=== PATIENT | male | born 1950 | race Caucasian/White ===

== ENCOUNTER 2016-08-25 12:58 | Inpatient (IN) | payer MEDICARE, MEDICAID ==
[~2016-08-25] VITALS: Ht 165.1 cm; Wt 94.9 kg
[~2016-08-25 12:58] MED LIST: BENZ1TAB10 PO; CALC500T62 PO; ERGO400T3 PO; FERR-89 PO; FOLI1TAB15 PO; HALDOL PO; PSEU60 PO; RISP1 PO
[2016-08-25 13:42] LABS: BASOPHILS % (AUTO) 0.2 % (0.0-2.0); EOSINOPHILS % (AUTO) 0.7 % (1.0-6.0); HEMATOCRIT 39.4 % (41-53); HEMOGLOBIN 12.8 g/dL (13.5-17.5); LYMPHOCYTES # (AUTO) 0.9 K/uL (1.0-4.8); LYMPHOCYTES % (AUTO) 10.9 % (22.0-44.0); MEAN CORPUSCULAR HGB CONC 32.4 G/dL (31.0-37.0); MEAN CORPUSCULAR VOLUME 89 fL (80-100); MONOCYTES # (AUTO) 0.5 K/uL (0.1-1.0); MONOCYTES % (AUTO) 5.9 % (2.0-9.0); NEUTROPHILS # (AUTO) 6.8 K/uL (1.8-7.7); NEUTROPHILS % (AUTO) 82.3 % (40.0-70.0); PLATELET COUNT (AUTO) 268 K/uL (150-450); RED BLOOD CELL COUNT(AUTO) 4.41 MIL/uL (4.50-5.90); RED CELL DISTRIBUTION WIDTH 13.4 % (11.5-14.5); WHITE BLOOD COUNT (AUTO) 8.2 K/uL (4.5-11.0)
[2016-08-25 14:02] LABS: ANION GAP 9 mmol/L (8-16); CARBON DIOXIDE 27 mmol/L (22-29); CHLORIDE 105 mmol/L (98-107); CREATININE 1.31 mg/dL (0.60-1.30); GLOMERULAR FILTR. RATE CALC 55 mL/min (>60); POTASSIUM 3.6 mmol/L (3.5-5.1); SODIUM SERUM 141 mmol/L (136-145); UREA NITROGEN, BLOOD 22 mg/dL (7-18)
[2016-08-25 14:07] LABS: ALANINE AMINOTRANSFERASE 92 U/L (12-78); ALBUMIN 3.5 g/dL (3.4-5.0); ASPARTATE AMINOTRANSFERASE 43 U/L (15-37); TOTAL PROTEIN, SERUM 7.3 g/dL (6.4-8.2)
[2016-08-25 14:11] LABS: TROPONIN I < 0.02 ng/mL (0.00-0.05)
[2016-08-25 14:18] LABS: AMMONIA 16 umol/L (11-32)
[2016-08-25 14:24] LABS: BILIRUBIN,TOTAL 0.1 mg/dL (0.1-1.0)
[2016-08-25 15:01] LABS: APPEARANCE,URINE CLEAR (CLEAR); GLUCOSE, URINE (UA) NEGATIVE (NEGATIVE); KETONES,URINE NEGATIVE (NEGATIVE); LEUKOCYTE ESTERASE ,URINE NEGATIVE (NEGATIVE); OCCULT BLOOD,URINE NEGATIVE (NEGATIVE); PROTEIN,URINE NEGATIVE (NEGATIVE)
[2016-08-25 15:02] LABS: ADD UA MICROSCOPIC NO
[2016-08-25] MEDS ORDERED: ACETAMINOPHEN 325 MG TABLET PO PRN (15:30)
[2016-08-25] MEDS: HEPARIN SODIUM,PORCINE 5,000 UNITS/ML VIAL SQ SCH ×2 (15:36→23:22)
[2016-08-25 16:45] VITALS: BP 107/60
[2016-08-25] MEDS ORDERED: INFLUENZA VIRUS VACCINE QVS 2016-17 (3YR+)/PF 60 MCG/0.5 ML SYRINGE IM ONE (17:30)
[2016-08-25] MEDS ORDERED: CABERGOLINE PO (18:36)
[2016-08-25] MEDS ORDERED: GLYBURIDE PO (18:36)
[2016-08-25] MEDS ORDERED: [UNRECOGNIZED DRUG - OTHER] PO (18:36)
[2016-08-25] MEDS ORDERED: METFORMIN PO (18:36)
[2016-08-25] MEDS ORDERED: ASA PO (18:36)
[2016-08-25] MEDS ORDERED: XARELTO PO (18:36)
[2016-08-25 19:28] VITALS: BP 100/58
[2016-08-25] MEDS: BENZTROPINE MESYLATE 1 MG TABLET PO SCH (20:54)
[2016-08-26] VITALS (9 sets, daily range): BP systolic 93–133; BP diastolic 45–71
[2016-08-26] MEDS: BENZTROPINE MESYLATE 1 MG TABLET PO SCH ×2 (08:26→20:25)
[2016-08-26] MEDS: RisperiDONE 1 MG TABLET PO SCH (08:26)
[2016-08-26] MEDS: HEPARIN SODIUM,PORCINE 5,000 UNITS/ML VIAL SQ SCH ×3 (08:26→23:38)
[2016-08-26] MEDS: PANTOPRAZOLE SODIUM 40 MG DR TABLET PO SCH (08:26)
[2016-08-27 04:43] VITALS: BP 128/69
[2016-08-27 07:43] VITALS: BP 131/72
[2016-08-27] MEDS: HEPARIN SODIUM,PORCINE 5,000 UNITS/ML VIAL SQ SCH (09:00)
[2016-08-27] MEDS: BENZTROPINE MESYLATE 1 MG TABLET PO SCH (09:00)
[2016-08-27] MEDS: RisperiDONE 1 MG TABLET PO SCH (09:00)
[2016-08-27] MEDS: PANTOPRAZOLE SODIUM 40 MG DR TABLET PO SCH (09:00)
[2016-08-27 11:43] VITALS: BP 119/70
== END 2016-08-27 12:45 | disposition home or self-care (01) | DRG 72 ==
LOC: EMS 12:59 → 5S 15:37
PROVIDERS: ADMIT Hospitalist; ATTEND Hospitalist
PROC: 3E0234Z Introduction of Serum, Toxoid and Vaccine into Muscle, Percutaneous Approach (ICD-10-PCS; principal; 2016-08-25)
DX: G93.41 Metabolic encephalopathy (principal); F20.9 Schizophrenia, unspecified; D64.9 Anemia, unspecified; E66.9 Obesity, unspecified; E55.9 Vitamin D deficiency, unspecified; D50.9 Iron deficiency anemia, unspecified; Z23 Encounter for immunization; Z68.34 Body mass index [BMI] 34.0-34.9, adult; Z95.0 Presence of cardiac pacemaker; Z79.899 Other long term (current) drug therapy; Z86.69 Personal history of other diseases of the nervous system and sense organs
CPT/HCPCS: 51702; 70450; 90471; 93005; 99291; G0480; J1644

== ENCOUNTER 2019-05-23 22:11 | Inpatient (IN) | payer MEDICARE, MEDICAID ==
[~2019-05-23] VITALS: Ht 157.5 cm; Wt 91.0 kg
[~2019-05-23 22:11] MED LIST changes: +ASA PO; +CABERGOLINE PO; +GLYBURIDE PO; +METFORMIN PO; +XARELTO PO; +[UNRECOGNIZED DRUG - OTHER] PO
[2019-05-24 00:34] LABS: BASOPHILS % (AUTO) 0.6 % (0.0-2.0); EOSINOPHILS % (AUTO) 2.2 % (1.0-6.0); HEMATOCRIT 40.4 % (41-53); HEMOGLOBIN 13.2 g/dL (13.5-17.5); LYMPHOCYTES # (AUTO) 2.4 K/uL (1.0-4.8); LYMPHOCYTES % (AUTO) 30.1 % (22.0-44.0); MEAN CORPUSCULAR HEMOGLOBIN 28.8 pg (26.0-34.0); MEAN CORPUSCULAR HGB CONC 32.6 G/dL (31.0-37.0); MEAN CORPUSCULAR VOLUME 88 fL (80-100); MONOCYTES # (AUTO) 0.8 K/uL (0.1-1.0); MONOCYTES % (AUTO) 9.6 % (2.0-9.0); NEUTROPHILS # (AUTO) 4.7 K/uL (1.8-7.7); NEUTROPHILS % (AUTO) 57.5 % (40.0-70.0); PLATELET COUNT (AUTO) 260 K/uL (150-450); RED BLOOD CELL COUNT(AUTO) 4.58 MIL/uL (4.50-5.90)
[2019-05-24 00:39] LABS: ANION GAP 10 mmol/L (8-16); CARBON DIOXIDE 28 mmol/L (22-29); CHLORIDE 104 mmol/L (98-107); CREATININE 0.85 mg/dL (0.60-1.30); GLOMERULAR FILTR. RATE CALC > 60 mL/min (>60); GLUCOSE,RANDOM 132 mg/dL (70-110); POTASSIUM 4.4 mmol/L (3.5-5.1); SODIUM SERUM 142 mmol/L (136-145); UREA NITROGEN, BLOOD 12 mg/dL (7-18)
[2019-05-24 00:44] LABS: ALANINE AMINOTRANSFERASE 60 U/L (12-78); ALBUMIN 3.8 g/dL (3.4-5.0); ALKALINE PHOSPHATASE 134 U/L (46-116); ASPARTATE AMINOTRANSFERASE 35 U/L (15-37); BILIRUBIN,TOTAL 0.2 mg/dL (0.1-1.0); TOTAL PROTEIN, SERUM 7.9 g/dL (6.4-8.2)
[2019-05-24 00:45] LABS: AMPHET/METH SCREEN,URINE NEGATIVE (NEGATIVE); BARBITURATE SCREEN, URINE NEGATIVE (NEGATIVE); BENZODIAZEPINES SCREEN,URINE NEGATIVE (NEGATIVE); CANNABINOID SCREEN,URINE NEGATIVE (NEGATIVE); COCAINE SCREEN,URINE NEGATIVE (NEGATIVE); METHADONE SCREEN, URINE NEGATIVE (NEGATIVE); OPIATE SCREEN,URINE NEGATIVE (NEGATIVE)
[2019-05-24 00:46] LABS: PHENCYCLIDINE SCREEN,URINE NEGATIVE (NEGATIVE)
[2019-05-24] MEDS ORDERED: ZOLPIDEM TARTRATE 10 MG TABLET PO PRN (01:00)
[2019-05-24] MEDS ORDERED: ACETAMINOPHEN 325 MG TABLET PO PRN (01:00)
[2019-05-24] MEDS ORDERED: LORazepam 1 MG TABLET PO PRN (01:00)
[2019-05-24] MEDS ORDERED: 0.9% SODIUM CHLORIDE 10 ML SYRINGE IVP PRN (01:00)
[2019-05-24] MEDS ORDERED: HALOPERIDOL 5 MG TABLET PO PRN (01:00)
[2019-05-24 04:04] VITALS: BP 156/76
[2019-05-24] MEDS ORDERED: PNEUMOCOCCAL VACCINE POLYVALENT 0.5 ML VIAL [PPSV23] IM ONE (04:45)
[2019-05-24 08:00] VITALS: BP 126/75
[2019-05-24] MEDS ORDERED: GLUCAGON,HUMAN RECOMBINANT 1 MG VIAL IM PRN (12:15)
[2019-05-24 16:00] VITALS: BP 153/87
[2019-05-24] MEDS: CHOLECALCIFEROL (VIT D3) 400 UNITS TABLET PO SCH (16:34)
[2019-05-24] MEDS: CALCIUM OYSTER SHELL 500 MG TABLET PO SCH (16:34)
[2019-05-24] MEDS: RIVAROXABAN 20 MG TABLET PO SCH (16:34)
[2019-05-24] MEDS: INSULIN LISPRO 100 UNITS/ML SQ PRN ×2 (16:38→20:50)
[2019-05-24 16:59] LABS: GLUCOMETER DEV NAME(LOC) BV3N.; GLUCOSE,POINT OF CARE 144 MG/DL (70-110)
[2019-05-24 21:05] LABS: GLUCOMETER DEV NAME(LOC) BV3N.; GLUCOSE,POINT OF CARE 195 MG/DL (70-110)
[2019-05-25 03:00] VITALS: BP 143/92
[2019-05-25 06:18] LABS: GLUCOMETER DEV NAME(LOC) BV3N.; GLUCOSE,POINT OF CARE 113 MG/DL (70-110)
[2019-05-25 08:00] VITALS: BP 133/61
[2019-05-25] MEDS: CHOLECALCIFEROL (VIT D3) 400 UNITS TABLET PO SCH ×2 (08:06→16:34)
[2019-05-25] MEDS: ASPIRIN 81 MG CHEWABLE TABLET PO SCH (08:06)
[2019-05-25] MEDS: RisperiDONE 1 MG TABLET PO SCH ×2 (08:06→16:34)
[2019-05-25] MEDS: FOLIC ACID 1 MG TABLET PO SCH (08:06)
[2019-05-25] MEDS: CALCIUM OYSTER SHELL 500 MG TABLET PO SCH ×2 (08:06→16:34)
[2019-05-25] MEDS: FERROUS SULFATE 325 MG EC TABLET PO SCH (08:06)
[2019-05-25] MEDS: LISINOPRIL 5 MG TABLET PO SCH (08:09)
[2019-05-25 09:46] LABS: HEMOGLOBIN A1C 5.8 % (4.5-6.2)
[2019-05-25 10:43] LABS: CHOL/HDL RATIO 7.2 (4.2-7.3); CHOLESTEROL 252 mg/dL (131-200); FREE T4 (FREE THYROXINE) 0.89 ng/dL (0.76-1.46); HDL CHOLESTEROL 35 mg/dL (40-60); TRIGLYCERIDES 454 mg/dL (15-150)
[2019-05-25] MEDS: INSULIN LISPRO 100 UNITS/ML SQ PRN (11:35)
[2019-05-25 11:55] LABS: GLUCOMETER DEV NAME(LOC) BV3N.; GLUCOSE,POINT OF CARE 153 MG/DL (70-110)
[2019-05-25 16:12] VITALS: BP 110/66
[2019-05-25] MEDS: MetFORMIN HCL 500 MG TABLET PO SCH (16:34)
[2019-05-25] MEDS: RIVAROXABAN 20 MG TABLET PO SCH (16:34)
[2019-05-25 17:06] LABS: GLUCOMETER DEV NAME(LOC) BV3N.; GLUCOSE,POINT OF CARE 130 MG/DL (70-110)
[2019-05-25 21:06] LABS: GLUCOMETER DEV NAME(LOC) BV3N.; GLUCOSE,POINT OF CARE 130 MG/DL (70-110)
[2019-05-26 04:48] VITALS: BP 111/57
[2019-05-26] MEDS: MetFORMIN HCL 500 MG TABLET PO SCH ×2 (06:25→16:33)
[2019-05-26 06:41] LABS: GLUCOMETER DEV NAME(LOC) BV3N.; GLUCOSE,POINT OF CARE 116 MG/DL (70-110)
[2019-05-26 08:11] VITALS: BP 119/60
[2019-05-26] MEDS: FERROUS SULFATE 325 MG EC TABLET PO SCH (08:53)
[2019-05-26] MEDS: ASPIRIN 81 MG CHEWABLE TABLET PO SCH (08:54)
[2019-05-26] MEDS: FOLIC ACID 1 MG TABLET PO SCH (08:54)
[2019-05-26] MEDS: RisperiDONE 1 MG TABLET PO SCH ×2 (08:54→16:33)
[2019-05-26] MEDS: LISINOPRIL 5 MG TABLET PO SCH (08:54)
[2019-05-26] MEDS: CHOLECALCIFEROL (VIT D3) 400 UNITS TABLET PO SCH ×2 (09:05→16:33)
[2019-05-26] MEDS: CALCIUM OYSTER SHELL 500 MG TABLET PO SCH ×2 (09:05→16:33)
[2019-05-26 13:02] LABS: GLUCOMETER DEV NAME(LOC) BV3N.; GLUCOSE,POINT OF CARE 146 MG/DL (70-110)
[2019-05-26 16:10] VITALS: BP 148/89
[2019-05-26] MEDS: RIVAROXABAN 20 MG TABLET PO SCH (16:33)
[2019-05-26] MEDS: INSULIN LISPRO 100 UNITS/ML SQ PRN (18:22)
[2019-05-26 18:24] LABS: GLUCOMETER DEV NAME(LOC) BV3N.; GLUCOSE,POINT OF CARE 177 MG/DL (70-110)
[2019-05-26 21:23] LABS: GLUCOMETER DEV NAME(LOC) BV3N.; GLUCOSE,POINT OF CARE 110 MG/DL (70-110)
[2019-05-27 01:00] VITALS: BP 126/67
[2019-05-27 06:13] LABS: GLUCOMETER DEV NAME(LOC) BV3N.; GLUCOSE,POINT OF CARE 122 MG/DL (70-110)
[2019-05-27] MEDS: MetFORMIN HCL 500 MG TABLET PO SCH ×2 (06:43→16:36)
[2019-05-27] MEDS: LISINOPRIL 5 MG TABLET PO SCH (08:13)
[2019-05-27] MEDS: FERROUS SULFATE 325 MG EC TABLET PO SCH (08:13)
[2019-05-27] MEDS: ASPIRIN 81 MG CHEWABLE TABLET PO SCH (08:13)
[2019-05-27] MEDS: RisperiDONE 1 MG TABLET PO SCH ×2 (08:13→16:36)
[2019-05-27] MEDS: CHOLECALCIFEROL (VIT D3) 400 UNITS TABLET PO SCH ×2 (08:13→16:36)
[2019-05-27] MEDS: FOLIC ACID 1 MG TABLET PO SCH (08:13)
[2019-05-27] MEDS: CALCIUM OYSTER SHELL 500 MG TABLET PO SCH ×2 (08:13→16:36)
[2019-05-27 08:18] VITALS: BP 116/60
[2019-05-27 12:05] LABS: GLUCOMETER DEV NAME(LOC) BV3N.; GLUCOSE,POINT OF CARE 124 MG/DL (70-110)
[2019-05-27] MEDS: RIVAROXABAN 20 MG TABLET PO SCH (16:36)
[2019-05-27] MEDS: INSULIN LISPRO 100 UNITS/ML SQ PRN ×2 (16:38→20:43)
[2019-05-27 16:56] VITALS: BP 129/62
[2019-05-27 17:20] LABS: GLUCOMETER DEV NAME(LOC) BV3N.; GLUCOSE,POINT OF CARE 158 MG/DL (70-110)
[2019-05-27 20:49] LABS: GLUCOMETER DEV NAME(LOC) BV3N.; GLUCOSE,POINT OF CARE 144 MG/DL (70-110)
[2019-05-28 05:41] VITALS: BP 132/57
[2019-05-28 06:17] LABS: GLUCOMETER DEV NAME(LOC) BV3N.; GLUCOSE,POINT OF CARE 118 MG/DL (70-110)
[2019-05-28] MEDS: MetFORMIN HCL 500 MG TABLET PO SCH ×2 (06:38→09:43)
[2019-05-28 08:16] VITALS: BP 123/71
[2019-05-28] MEDS: RisperiDONE 1 MG TABLET PO SCH ×2 (09:33→16:54)
[2019-05-28] MEDS: FERROUS SULFATE 325 MG EC TABLET PO SCH (09:38)
[2019-05-28] MEDS: ASPIRIN 81 MG CHEWABLE TABLET PO SCH (09:39)
[2019-05-28] MEDS: FOLIC ACID 1 MG TABLET PO SCH (09:39)
[2019-05-28] MEDS: LISINOPRIL 5 MG TABLET PO SCH (09:39)
[2019-05-28] MEDS: CHOLECALCIFEROL (VIT D3) 400 UNITS TABLET PO SCH ×2 (09:40→16:54)
[2019-05-28] MEDS: CALCIUM OYSTER SHELL 500 MG TABLET PO SCH ×2 (09:41→16:54)
[2019-05-28 12:54] LABS: GLUCOMETER DEV NAME(LOC) BV3N.; GLUCOSE,POINT OF CARE 104 MG/DL (70-110)
[2019-05-28 16:15] VITALS: BP 129/71
[2019-05-28] MEDS: RIVAROXABAN 20 MG TABLET PO SCH (16:54)
[2019-05-28 17:13] LABS: GLUCOMETER DEV NAME(LOC) BV3N.; GLUCOSE,POINT OF CARE 178 MG/DL (70-110)
[2019-05-28] MEDS: INSULIN LISPRO 100 UNITS/ML SQ PRN (17:35)
[2019-05-28 21:23] LABS: GLUCOMETER DEV NAME(LOC) BV3N.; GLUCOSE,POINT OF CARE 131 MG/DL (70-110)
[2019-05-29 06:19] LABS: GLUCOMETER DEV NAME(LOC) BV3N.; GLUCOSE,POINT OF CARE 110 MG/DL (70-110)
[2019-05-29 06:23] VITALS: BP 128/68
[2019-05-29 08:00] VITALS: BP 140/65
[2019-05-29] MEDS: CHOLECALCIFEROL (VIT D3) 400 UNITS TABLET PO SCH ×2 (09:23→16:32)
[2019-05-29] MEDS: FERROUS SULFATE 325 MG EC TABLET PO SCH (09:23)
[2019-05-29] MEDS: LISINOPRIL 5 MG TABLET PO SCH (09:23)
[2019-05-29] MEDS: RisperiDONE 1 MG TABLET PO SCH ×2 (09:23→16:33)
[2019-05-29] MEDS: CALCIUM OYSTER SHELL 500 MG TABLET PO SCH ×2 (09:23→16:32)
[2019-05-29] MEDS: ASPIRIN 81 MG CHEWABLE TABLET PO SCH (09:24)
[2019-05-29] MEDS: MetFORMIN HCL 500 MG TABLET PO SCH (09:25)
[2019-05-29] MEDS: FOLIC ACID 1 MG TABLET PO SCH (09:26)
[2019-05-29 12:17] LABS: GLUCOMETER DEV NAME(LOC) BV3N.; GLUCOSE,POINT OF CARE 101 MG/DL (70-110)
[2019-05-29 16:00] VITALS: BP 117/68
[2019-05-29] MEDS: RIVAROXABAN 20 MG TABLET PO SCH (16:32)
[2019-05-29] MEDS: INSULIN LISPRO 100 UNITS/ML SQ PRN (16:34)
[2019-05-29 17:01] LABS: GLUCOMETER DEV NAME(LOC) BV3N.; GLUCOSE,POINT OF CARE 157 MG/DL (70-110)
[2019-05-29 21:11] LABS: GLUCOMETER DEV NAME(LOC) BV3N.; GLUCOSE,POINT OF CARE 119 MG/DL (70-110)
[2019-05-30 05:02] VITALS: BP 129/65
[2019-05-30 06:21] LABS: GLUCOMETER DEV NAME(LOC) BV3N.; GLUCOSE,POINT OF CARE 116 MG/DL (70-110)
[2019-05-30 08:22] VITALS: BP 165/61
[2019-05-30] MEDS: MetFORMIN HCL 500 MG TABLET PO SCH (08:33)
[2019-05-30] MEDS: RisperiDONE 1 MG TABLET PO SCH ×2 (08:33→16:37)
[2019-05-30] MEDS: ASPIRIN 81 MG CHEWABLE TABLET PO SCH (08:34)
[2019-05-30] MEDS: FOLIC ACID 1 MG TABLET PO SCH (08:34)
[2019-05-30] MEDS: LISINOPRIL 5 MG TABLET PO SCH (08:34)
[2019-05-30] MEDS: FERROUS SULFATE 325 MG EC TABLET PO SCH (08:35)
[2019-05-30] MEDS: CALCIUM OYSTER SHELL 500 MG TABLET PO SCH ×2 (08:36→16:37)
[2019-05-30] MEDS: CHOLECALCIFEROL (VIT D3) 400 UNITS TABLET PO SCH ×2 (08:36→16:37)
[2019-05-30 11:50] LABS: GLUCOMETER DEV NAME(LOC) BV3N.; GLUCOSE,POINT OF CARE 103 MG/DL (70-110)
[2019-05-30] MEDS ORDERED: CloNIDine HCL 0.1 MG TABLET PO PRN (12:45)
[2019-05-30 14:34] VITALS: BP 122/51
[2019-05-30 16:00] VITALS: BP 126/65
[2019-05-30] MEDS: RIVAROXABAN 20 MG TABLET PO SCH (16:37)
[2019-05-30 17:05] LABS: GLUCOMETER DEV NAME(LOC) BV3N.; GLUCOSE,POINT OF CARE 124 MG/DL (70-110)
[2019-05-30] MEDS: INSULIN LISPRO 100 UNITS/ML SQ PRN (20:50)
[2019-05-30 21:14] LABS: GLUCOMETER DEV NAME(LOC) BV3N.; GLUCOSE,POINT OF CARE 159 MG/DL (70-110)
[2019-05-31 06:09] VITALS: BP 122/72
[2019-05-31 06:20] LABS: GLUCOMETER DEV NAME(LOC) BV3N.; GLUCOSE,POINT OF CARE 124 MG/DL (70-110)
[2019-05-31] MEDS: CHOLECALCIFEROL (VIT D3) 400 UNITS TABLET PO SCH (08:23)
[2019-05-31] MEDS: MetFORMIN HCL 500 MG TABLET PO SCH (08:23)
[2019-05-31] MEDS: CALCIUM OYSTER SHELL 500 MG TABLET PO SCH (08:23)
[2019-05-31] MEDS: LISINOPRIL 5 MG TABLET PO SCH (08:23)
[2019-05-31] MEDS: ASPIRIN 81 MG CHEWABLE TABLET PO SCH (08:23)
[2019-05-31] MEDS: RisperiDONE 1 MG TABLET PO SCH (08:23)
[2019-05-31] MEDS: FOLIC ACID 1 MG TABLET PO SCH (08:23)
[2019-05-31] MEDS: FERROUS SULFATE 325 MG EC TABLET PO SCH (08:23)
[2019-05-31 08:45] VITALS: BP 133/60
[2019-05-31] MEDS ORDERED: OMEGA-3/DHA/EPA/FISH OIL 1,000 MG CAPSULE PO SCH (09:00)
[2019-05-31 11:47] LABS: GLUCOMETER DEV NAME(LOC) BV3N.; GLUCOSE,POINT OF CARE 176 MG/DL (70-110)
[2019-05-31] MEDS: INSULIN LISPRO 100 UNITS/ML SQ PRN (11:57)
[2019-05-31] MEDS ORDERED: VITAD400 PO (14:28)
[2019-05-31] MEDS ORDERED: RIVA20TA PO (14:29)
[2019-05-31] MEDS ORDERED: FERR-89 PO (14:29)
[2019-05-31] MEDS ORDERED: OMEG-135 PO (14:30)
[2019-05-31] MEDS ORDERED: LISI-660 PO (14:30)
[2019-05-31] MEDS ORDERED: RISP1 PO (14:37)
[2019-05-31 16:13] VITALS: BP 134/68
== END 2019-05-31 16:34 | disposition home or self-care (01) | DRG 750 ==
LOC: EMS 22:13 → B2S 05-24 02:00 → B3A 05-24 03:52
PROVIDERS: ADMIT Psychiatry & Neurology Psychiatry; ATTEND Psychiatry & Neurology Psychiatry
DX: F25.9 Schizoaffective disorder, unspecified (principal); E11.9 Type 2 diabetes mellitus without complications; D64.9 Anemia, unspecified; E55.9 Vitamin D deficiency, unspecified; I10 Essential (primary) hypertension; I25.10 Atherosclerotic heart disease of native coronary artery without angina pectoris; Z79.01 Long term (current) use of anticoagulants; Z87.891 Personal history of nicotine dependence; Z90.49 Acquired absence of other specified parts of digestive tract; Z95.0 Presence of cardiac pacemaker
CPT/HCPCS: 83036; 84439; G0480

== ENCOUNTER → 2020-03-14 | Outpatient (CLI) | payer MEDICARE, MEDICAID ==
[~2020-03-14] VITALS: Ht 154.9 cm; Wt 84.6 kg
[~2020-03-14] MED LIST changes: +BENZ0.5T44 PO; -BENZ1TAB10 PO; -CABERGOLINE PO; +CHOL400T56 PO; +DOCU-202 PO; -ERGO400T3 PO; -FOLI1TAB15 PO; -GLYBURIDE PO; -HALDOL PO; +LISI-660 PO; +LURA80TA2 PO; +OMEG-135 PO; +OMEP20 PO; -PSEU60 PO; +QUET25TA PO; -RISP1 PO; +RISP1TAB27 PO; +RIVA20TA PO; -XARELTO PO; -[UNRECOGNIZED DRUG - OTHER] PO
[2020-03-14 12:09] VITALS: BP 112/67
== END | disposition home or self-care (01) ==
LOC: SRCNTR 12:08
PROVIDERS: ATTEND Internal Medicine Clinical Cardiac Electrophysiology
DX: Z45.010 Encounter for checking and testing of cardiac pacemaker pulse generator [battery] (principal)
CPT/HCPCS: G0463